=== PATIENT | female | born 1955 | race Caucasian/White ===

== ENCOUNTER 2023-01-19 12:45 | Emergency (ER) | payer MEDICARE, MEDICAID ==
[~2023-01-19] VITALS: Ht 160 cm; Wt 73.0 kg
[2023-01-19 12:49] VITALS: BP 182/96; PULSE 60; RESP 16; TEMP 98.5; O2SAT 98
== END 2023-01-19 15:23 | disposition left against medical advice (07) ==
LOC: ER 12:45
DX: I10 Essential (primary) hypertension (principal); E11.9 Type 2 diabetes mellitus without complications
CPT/HCPCS: 93005; 99281